=== PATIENT | male | born 1975 | race Caucasian/White ===

== ENCOUNTER 2017-01-04 02:10 | Emergency (ER) | payer OTHER ==
[~2017-01-04] VITALS: Ht 175.3 cm; Wt 66.0 kg
[2017-01-04 03:32] LABS: HEMATOCRIT 41.3 % (38.0-50.0); MCH 32.5 PG (29.0-34.0); MCHC 34.1 G/DL (30.0-36.0); MCV 95.2 FL (86-99); MEAN PLAT.VOLUME 9.8 uM^3 (9.0-12.4); PLATELET COUNT 127 K/uL (156-360); RBC DIS.WIDTH-CV 14.8 % (11.8-14.6); RBC DIS.WIDTH-SD 51.5 % (39-53); RED BLOOD COUNT 4.34 M/uL (4.00-5.50); WHITE BLOOD COUNT 4.6 K/uL (4.1-10.2)
[2017-01-04 03:42] LABS: INTER. NORMALIZED RATIO 1.1; PROTHROMBIN TIME 10.7 (9.2-11.2); PTT 27.4 (25-32)
[2017-01-04 03:43] LABS: CHLORIDE 112 mEq/L (99-109); POTASSIUM 3.6 mEq/L (3.7-5.4); SODIUM 143 mEq/L (136-147)
[2017-01-04 03:45] LABS: GLUCOSE 103 mg/dL (70-99)
[2017-01-04 03:46] LABS: ANION GAP 8 MEQ/L (2-14)
[2017-01-04 03:47] LABS: TOTAL BILIRUBIN 0.4 mg/dL (0.0-1.0)
[2017-01-04 03:49] LABS: ALKALINE PHOSPHATASE 65 IU/L (3-129); GFR ESTIMATE (CALCULATED) > 59 mL/min/
[2017-01-04 03:50] LABS: UREA NITROGEN (BUN) 11 mg/dL (9-23)
[2017-01-04 03:54] LABS: TROP-I INTERPRETATION NEGATIVE; TROPONIN-I < 0.01 ng/mL (0.0-0.30)
[2017-01-04 04:05] LABS: SERUM ETHYL ALCOHOL 163 mg/dL
[2017-01-04 05:17] VITALS: BP 104/59
== END 2017-01-04 05:19 | disposition home or self-care (01) ==
LOC: EME 02:10
PROVIDERS: Emergency Medicine
DX: R10.12 Left upper quadrant pain (principal); K92.2 Gastrointestinal hemorrhage, unspecified; F10.129 Alcohol abuse with intoxication, unspecified; Y90.6 Blood alcohol level of 120-199 mg/100 ml; F17.200 Nicotine dependence, unspecified, uncomplicated
CPT/HCPCS: 80048; 80053; 84484; 85027; 85610; 85730; 93005; 99281; 99284; G0480

== ENCOUNTER 2017-02-03 16:18 | Emergency (ER) | payer OTHER ==
[~2017-02-03] VITALS: Ht 175.3 cm; Wt 62.0 kg
[2017-02-03 16:32] VITALS: BP 117/89
[2017-02-03] MEDS ORDERED: FLEXERIL10 MG PO (16:45)
[2017-02-03] MEDS ORDERED: PREDNISONE10 MG PO (16:45)
== END 2017-02-03 17:06 | disposition home or self-care (01) ==
LOC: EME 16:18
DX: M54.9 Dorsalgia, unspecified (principal); Z87.828 Personal history of other (healed) physical injury and trauma
CPT/HCPCS: 99281; 99283

== ENCOUNTER 2017-02-12 14:38 | Emergency (ER) | payer OTHER ==
[~2017-02-12] VITALS: Ht 175.3 cm; Wt 61.4 kg
[~2017-02-12 14:38] MED LIST: FLEXERIL10 MG PO; PREDNISONE10 MG PO
[2017-02-12 15:38] LABS: HEMATOCRIT 44.1 % (38.0-50.0); MCH 33.3 PG (29.0-34.0); MCHC 34.7 G/DL (30.0-36.0); MCV 95.9 FL (86-99); PLATELET COUNT 144 K/uL (156-360); RBC DIS.WIDTH-CV 12.8 % (11.8-14.6); RBC DIS.WIDTH-SD 45.3 % (39-53); WHITE BLOOD COUNT 4.1 K/uL (4.1-10.2)
[2017-02-12] MEDS ORDERED: SUBOXONE 8 MG-1 EAC2 SL (15:44)
[2017-02-12 15:47] LABS: CHLORIDE 101 mEq/L (99-109); POTASSIUM 4.7 mEq/L (3.7-5.4); SODIUM 135 mEq/L (136-147)
[2017-02-12 15:50] LABS: GLUCOSE 73 mg/dL (70-99)
[2017-02-12 15:51] LABS: ANION GAP 9 MEQ/L (2-14)
[2017-02-12 15:52] LABS: TOTAL BILIRUBIN 0.9 mg/dL (0.0-1.0)
[2017-02-12 15:53] LABS: ALKALINE PHOSPHATASE 68 IU/L (3-129); GFR ESTIMATE (CALCULATED) > 59 mL/min/; SERUM ETHYL ALCOHOL < 10 mg/dL
[2017-02-12 15:54] LABS: UREA NITROGEN (BUN) 14 mg/dL (9-23)
[2017-02-12 15:57] LABS: LIPASE 15 U/L (1.0-51.0)
[2017-02-12 16:11] LABS: ADD MIUA? YES; BILIRUBIN NEGATIVE; BLOOD NEGATIVE; COLOR YELLOW ((YELLOW)); GLUCOSE (STRIP) NEGATIVE; KETONES 80; LEUKOCYTES NEGATIVE; NITRITE NEGATIVE; PROTEIN (STRIP) 30
[2017-02-12 16:16] LABS: BACTERIA NONE SEEN /HPF; EPITHELIAL CELLS NONE SEEN /HPF; MUCUS TRACE /LPF; RED BLOOD CELLS NONE SEEN /HPF (0-5); WHITE BLOOD CELLS 0-5 /HPF (0-5)
[2017-02-12 16:19] LABS: AMPHETAMINE NEGATIVE (500 ng/mL); BARBITURATES NEGATIVE (200 ng/mL); BENZODIAZEPINES NEGATIVE (150 ng/mL); COCAINE NEGATIVE (150 ng/mL); INTERNAL CONTROLS VALID? YES; METHADONE NEGATIVE (200 ng/mL); METHAMPHETAMINE NEGATIVE (500 ng/mL); OPIATES (MORPHINE) NEGATIVE (100 ng/mL); OXYCODONE NEGATIVE (100 ng/mL); PHENCYCLIDINE NEGATIVE (25 ng/mL); PROPOXYPHENE NEGATIVE (300 ng/mL); THC CANNABINOIDS PRESUMPTIVE POSITIVE (50 ng/mL); TRICYCLIC ANTIDEPRESSANTS NEGATIVE (300 ng/mL)
[2017-02-12 16:20] LABS: ADD MEDTOX COMMENT Y
[2017-02-12] MEDS ORDERED: B-1100 MG PO (16:45)
[2017-02-12] MEDS ORDERED: ZOFRAN ODT4 MG PO (16:45)
[2017-02-12] MEDS ORDERED: ATIVAN2 MG PO (16:45)
[2017-02-12 17:01] VITALS: BP 121/71
== END 2017-02-12 17:02 | disposition home or self-care (01) ==
LOC: EME 14:38
PROVIDERS: Physician Assistant
DX: F10.239 Alcohol dependence with withdrawal, unspecified (principal); R11.10 Vomiting, unspecified; F17.200 Nicotine dependence, unspecified, uncomplicated; Y90.0 Blood alcohol level of less than 20 mg/100 ml
CPT/HCPCS: 74022; 80053; 81003; 83690; 84999; 85027; 99281; 99284; G0480; J7030

== ENCOUNTER 2017-03-08 05:28 | Emergency (ER) | payer OTHER ==
[~2017-03-08] VITALS: Ht 175.3 cm; Wt 63.9 kg
[~2017-03-08 05:28] MED LIST changes: +ATIVAN2 MG PO; +B-1100 MG PO; +SUBOXONE 8 MG-1 EAC2 SL; +ZOFRAN ODT4 MG PO
[2017-03-08 06:26] LABS: HEMATOCRIT 45.8 % (38.0-50.0); MCH 32.3 PG (29.0-34.0); MCHC 33.6 G/DL (30.0-36.0); PLATELET COUNT 146 K/uL (156-360); RBC DIS.WIDTH-CV 12.3 % (11.8-14.6); RED BLOOD COUNT 4.77 M/uL (4.00-5.50); WHITE BLOOD COUNT 6.7 K/uL (4.1-10.2)
[2017-03-08 06:39] LABS: ADD MEDTOX COMMENT Y; AMPHETAMINE NEGATIVE (500 ng/mL); BARBITURATES NEGATIVE (200 ng/mL); BENZODIAZEPINES NEGATIVE (150 ng/mL); COCAINE NEGATIVE (150 ng/mL); INTERNAL CONTROLS VALID? YES; METHADONE NEGATIVE (200 ng/mL); METHAMPHETAMINE NEGATIVE (500 ng/mL); OPIATES (MORPHINE) NEGATIVE (100 ng/mL); OXYCODONE NEGATIVE (100 ng/mL); PHENCYCLIDINE NEGATIVE (25 ng/mL); PROPOXYPHENE NEGATIVE (300 ng/mL); THC CANNABINOIDS PRESUMPTIVE POSITIVE (50 ng/mL); TRICYCLIC ANTIDEPRESSANTS NEGATIVE (300 ng/mL)
[2017-03-08 06:40] LABS: CHLORIDE 106 mEq/L (99-109); POTASSIUM 4.1 mEq/L (3.7-5.4); SODIUM 142 mEq/L (136-147)
[2017-03-08 06:42] LABS: GLUCOSE 88 mg/dL (70-99)
[2017-03-08 06:43] LABS: ANION GAP 13 MEQ/L (2-14)
[2017-03-08 06:44] LABS: TOTAL BILIRUBIN 0.4 mg/dL (0.0-1.0)
[2017-03-08 06:45] LABS: SERUM ETHYL ALCOHOL 197 mg/dL
[2017-03-08 06:46] LABS: ALKALINE PHOSPHATASE 70 IU/L (3-129); GFR ESTIMATE (CALCULATED) > 59 mL/min/
[2017-03-08 06:47] LABS: UREA NITROGEN (BUN) 11 mg/dL (9-23)
[2017-03-08 10:59] VITALS: BP 102/63
== END 2017-03-08 11:04 ==
LOC: EME 05:28
PROVIDERS: Emergency Medicine
DX: F10.129 Alcohol abuse with intoxication, unspecified (principal); S20.219A Contusion of unspecified front wall of thorax, initial encounter; S00.03XA Contusion of scalp, initial encounter; R56.9 Unspecified convulsions; W22.8XXA Striking against or struck by other objects, initial encounter; Y90.6 Blood alcohol level of 120-199 mg/100 ml; F17.200 Nicotine dependence, unspecified, uncomplicated
CPT/HCPCS: 70450; 71250; 80053; 84999; 85027; 93005; 99281; 99284; G0480; J2060

== ENCOUNTER 2017-09-02 12:51 | Emergency (ER) | payer OTHER ==
[~2017-09-02] VITALS: Ht 175.3 cm; Wt 68.7 kg
[2017-09-02 13:47] LABS: APPEARANCE CLEAR ((CLEAR)); BILIRUBIN NEGATIVE; BLOOD MODERATE; COLOR STRAW ((YELLOW)); GLUCOSE (STRIP) NEGATIVE; KETONES NEGATIVE; LEUKOCYTES NEGATIVE; NITRITE NEGATIVE; PROTEIN (STRIP) NEGATIVE; SPECIFIC GRAVITY 1.003 (1.000-1.030); UROBILINOGEN 0.2 MG/DL (0.2-1.0)
[2017-09-02 13:47] LABS: BASOPHIL (%) 0.4 % (0-1); EOSINOPHIL (%) 0.2 % (0-5); HEMATOCRIT 41.7 % (38.0-50.0); HEMOGLOBIN 14.6 G/DL (12.5-16.6); IMMATURE GRANULOCYTE (%) 0.2 % (0.0-0.7); LYMPHOCYTE (%) 36.9 % (15-42); LYMPHOCYTE COUNT 1.7 K/uL (1.0-2.8); MCH 31.1 PG (29.0-34.0); MCV 88.9 FL (86-99); MONOCYTE COUNT 0.3 K/uL (0-0.8); NEUTROPHIL (%) 55.3 % (45-76); NEUTROPHIL COUNT 2.5 K/uL (1.8-6.4); PLATELET COUNT 172 K/uL (156-360); RBC DIS.WIDTH-CV 12.8 % (11.8-14.6); RBC DIS.WIDTH-SD 41.2 % (39-53); RED BLOOD COUNT 4.69 M/uL (4.00-5.50); WHITE BLOOD COUNT 4.6 K/uL (4.1-10.2)
[2017-09-02 13:48] LABS: BACTERIA NONE SEEN /HPF; EPITHELIAL CELLS NONE SEEN /HPF; MUCUS NONE SEEN /LPF; RED BLOOD CELLS 0-5 /HPF (0-5); UCUL ADDED? NO; WHITE BLOOD CELLS 0-5 /HPF (0-5)
[2017-09-02 13:58] LABS: ALBUMIN 4.4 g/dL (3.2-4.8); CHLORIDE 107 mEq/L (99-109); POTASSIUM 4.1 mEq/L (3.7-5.4); SODIUM 140 mEq/L (136-147)
[2017-09-02 14:01] LABS: GLUCOSE 95 mg/dL (70-99); TOTAL PROTEIN 7.4 g/dL (6.4-8.3)
[2017-09-02 14:02] LABS: TOTAL BILIRUBIN 0.3 mg/dL (0.0-1.0)
[2017-09-02 14:03] LABS: SERUM ETHYL ALCOHOL 187 mg/dL
[2017-09-02 14:04] LABS: ALKALINE PHOSPHATASE 63 IU/L (3-129); CREATININE 0.9 mg/dL (0.6-1.3); GFR ESTIMATE (CALCULATED) > 59 mL/min/ (58.99-99999)
[2017-09-02 14:05] LABS: UREA NITROGEN (BUN) 10 mg/dL (9-23)
[2017-09-02 14:06] LABS: AST (GOT) 34 IU/L (2-34)
[2017-09-02 14:06] LABS: AMPHETAMINE NEGATIVE (500 ng/mL); BARBITURATES NEGATIVE (200 ng/mL); BENZODIAZEPINES NEGATIVE (150 ng/mL); BUPRENORPHINE NEGATIVE (10 ng/mL); COCAINE NEGATIVE (150 ng/mL); METHADONE NEGATIVE (200 ng/mL); METHAMPHETAMINE NEGATIVE (500 ng/mL); OPIATES (MORPHINE) NEGATIVE (100 ng/mL); OXYCODONE NEGATIVE (100 ng/mL); PHENCYCLIDINE NEGATIVE (25 ng/mL); PROPOXYPHENE NEGATIVE (300 ng/mL); THC CANNABINOIDS NEGATIVE (50 ng/mL); TRICYCLIC ANTIDEPRESSANTS NEGATIVE (300 ng/mL)
[2017-09-02 14:07] LABS: ALT (GPT) 72 IU/L (3-49)
[2017-09-02 14:08] LABS: LIPASE 27 U/L (1.0-51.0)
[2017-09-02 14:51] LABS: CREATINE KINASE 90 IU/L (1-294)
[2017-09-02 15:46] VITALS: BP 132/85
== END 2017-09-02 15:33 ==
LOC: EME 12:51
PROVIDERS: Emergency Medicine
DX: F10.129 Alcohol abuse with intoxication, unspecified (principal); Y90.6 Blood alcohol level of 120-199 mg/100 ml; F19.10 Other psychoactive substance abuse, uncomplicated; R56.9 Unspecified convulsions; F41.9 Anxiety disorder, unspecified; F60.9 Personality disorder, unspecified; F17.200 Nicotine dependence, unspecified, uncomplicated
CPT/HCPCS: 70450; 80053; 81003; 82550; 83605; 83690; 85025; 93005; 99281; 99284; G0480; J2060